=== PATIENT | female | born 1965 | race Caucasian/White ===

== ENCOUNTER → 2025-04-28 16:02 | Outpatient (REF) | payer OTHER, SELFPAY | LOC: WDC 16:02 | PROVIDERS: ATTENDING PHYSICIAN Student in an Organized Health Care Education/Training Program | DX: Z13.820 Encounter for screening for osteoporosis (principal); Z12.31 Encounter for screening mammogram for malignant neoplasm of breast | CPT/HCPCS: 77063; 77067; 77080 ==

== ENCOUNTER → 2025-05-12 09:56 | Outpatient (REF) | payer OTHER, SELFPAY | LOC: WDC 09:56 | PROVIDERS: ATTENDING PHYSICIAN Student in an Organized Health Care Education/Training Program | DX: R92.8 Other abnormal and inconclusive findings on diagnostic imaging of breast (principal) | CPT/HCPCS: 76642 ==

== ENCOUNTER 2025-08-11 06:21 | Day surgery (SDC) | payer OTHER, SELFPAY | END 2025-08-11 09:05 | disposition home or self-care (01) | LOC: GI 06:21 | PROVIDERS: ATTENDING PHYSICIAN Internal Medicine Gastroenterology | DX: Z12.11 Encounter for screening for malignant neoplasm of colon (principal); D12.0 Benign neoplasm of cecum; D12.2 Benign neoplasm of ascending colon; K57.30 Diverticulosis of large intestine without perforation or abscess without bleeding; K64.8 Other hemorrhoids; Z86.0100 Personal history of colon polyps, unspecified | CPT/HCPCS: 45385; 88305 ==